=== PATIENT | female | born 1990 | race Caucasian/White ===

== ENCOUNTER → 2023-10-10 | Day surgery (SDC) | payer BC ==
--- NOTE | 2023-10-10 11:24 | RAD REPORT ---
EXAM DESCRIPTION: US - Guided FNA Non Breast - 10/10/2023 10:58 am CLINICAL HISTORY: E04.1, E01.4 COMPARISON: No comparisons FINDINGS: Preoperative diagnosis: Indeterminate right thyroid nodule. Post operative diagnosis: Same. Conscious Sedation: None Fluoroscopy time: None Contrast used: None Estimated blood loss: Minimal Specimens:4 x FNA 22 gauge needle Imaging: Ultrasound guidance IMPRESSION: Technically successful ultrasound-guided fine-needle aspiration of an indeterminate righ t thyroid nodule.
--- NOTE | 2023-10-10 11:24 | RAD REPORT ---
EXAM DESCRIPTION: - FINE NEEDLE ASPIRATION 2ND LES - 10/10/2023 10:58 am CLINICAL HISTORY: BILAT COMPARISON: No comparisons Preoperative diagnosis: Indeterminate left thyroid nodule. Post operative diagnosis: Same. Conscious Sedation: None Fluoroscopy time: None Contrast used: None Estimated blood loss: Minimal Specimens:4 x FNA 22 gauge needle Imaging: Ultrasound guidance IMPRESSION: Technically successful ultrasound-guided fine-needle aspiration of an indeterminate left thyroid nodule.
== END ==
LOC: FNA 08:00
PROVIDERS: ATTEND Otolaryngology Pediatric Otolaryngology
PROC: 0GBG3ZX Excision of Left Thyroid Gland Lobe, Percutaneous Approach, Diagnostic (ICD-10-PCS; principal; 2023-10-10)
PROC: 0GBH3ZX Excision of Right Thyroid Gland Lobe, Percutaneous Approach, Diagnostic (ICD-10-PCS; 2023-10-10)
DX: E04.2 Nontoxic multinodular goiter (principal)
CPT/HCPCS: 10006; 88162